=== PATIENT | female | born 1995 | race African-American/Black ===

== ENCOUNTER 2023-01-09 03:43 | Emergency (ER) | payer SELFPAY ==
[~2023-01-09] VITALS: Ht 170.2 cm; Wt 48.1 kg
[2023-01-09 03:44] VITALS: BP 123/82
[2023-01-09 04:07] VITALS: BP 123/82
--- NOTE | 2023-01-09 04:07 | NUR ---
Discharged by ER MD Beckett.
== END 2023-01-09 04:07 ==
LOC: MED 03:43
DX: Z02.89 Encounter for other administrative examinations (principal); Z53.21 Procedure and treatment not carried out due to patient leaving prior to being seen by health care provider